=== PATIENT | male | born 1965 | race Caucasian/White ===

== ENCOUNTER 2016-07-19 09:14 | Emergency (ER) | payer MEDICAID ==
[~2016-07-19] VITALS: Ht 172.7 cm; Wt 72.6 kg
[2016-07-19 09:55] LABS: Basophils # (auto) 0 uL; Basophils % (auto) 0.3 % (0.0-2.0); Eosinophils # (auto) 0.1 uL; Eosinophils % (auto) 0.6 % (0.0-7.0); Hematocrit 45.1 % (41.0-53.0); Hemoglobin 15.2 g/dL (13.5-17.5); Lymphocytes # (auto) 2.9 uL; Lymphocytes % (auto) 31.8 % (10.0-50.0); Mean Corpuscular Hemoglobin 30.1 pg (28.0-32.0); Mean Corpuscular Hgb Conc. 33.7 g/dL (32.0-36.0); Mean Corpuscular Volume 89.3 fL (80.0-100.0); Mean Platelet Volume 7.8 fL (7.4-10.4); Monocytes # (auto) 0.7 uL; Monocytes % (auto) 7.5 % (0.0-12.0); Neutrophils # (auto) 5.5 uL; Neutrophils % (auto) 59.8 % (37.0-80.0); Platelet Count (auto) 262 10^3/uL (140-450); Red Cell Distribution Width 12.8 % (11.6-16.0); White Blood Cell 9.2 10^3/uL (4.4-10.8)
[2016-07-19 10:05] VITALS: BP 152/116
[2016-07-19 10:15] LABS: Albumin 4.3 g/dL (3.4-5.0); Anion Gap 14 (5-15); Aspartate Aminotransferase 29 U/L (15-37); BUN/Creatinine Ratio 9.3; Blood Urea Nitrogen 10 mg/dL (7-18); Calcium 8.5 mg/dL (8.5-10.1); Carbon Dioxide 20 mmol/L (21-32); Chloride 110 mmol/L (98-107); GFR African American 93 mL/min; GFR Non-African American 77 mL/min; Glucose 132 mg/dL (74-106); Potassium 3.7 mmol/L (3.5-5.1); Sodium 144 mmol/L (136-145)
[2016-07-19 10:17] LABS: Alkaline Phosphatase 102 U/L (45-117); Bilirubin, Total 0.4 mg/dL (0.2-1.0)
[2016-07-19] MEDS ORDERED: SODIUM CHLORIDE 0.9% 1,000 ML IV ONE (10:48)
[2016-07-19] MEDS ORDERED: ONDANSETRON HCL 4 MG/2 ML VIAL IV ONE (11:00)
== END 2016-07-19 11:39 | disposition home or self-care (01) ==
LOC: ER 09:19
DX: F10.239 Alcohol dependence with withdrawal, unspecified (principal); R25.1 Tremor, unspecified; I25.10 Atherosclerotic heart disease of native coronary artery without angina pectoris
CPT/HCPCS: 36415; 80053; 80320; 85025; 93005; 94761; 96361; 96374; 99285; J2405; J7030